=== PATIENT | male | born 1975 | race Caucasian/White ===

== ENCOUNTER 2022-05-15 11:58 | Inpatient (IN) | payer MEDICAID, OTHER ==
[~2022-05-15] VITALS: Ht 165.1 cm; Wt 51.3 kg
[2022-05-15 13:29] LABS: CLARITY URINE CLEAR (CLEAR); COLOR URINE DARK YELLOW (YELLOW); KETONES URINE TRACE (NEGATIVE); LEUKOCYTE ESTERASE URINE 1+ (NEGATIVE); NITRITE URINE POSITIVE (NEGATIVE); OCCULT BLOOD URINE TRACE (NEGATIVE); PH URINE 6.5 (4.5-8.0); PROTEIN URINE 2+ (NEGATIVE); SPECIFIC GRAVITY URINE 1.024 (1.005-1.030)
[2022-05-15 13:29] LABS: HEMOGLOBIN. 8.1 g/dL (14.0-18.0); MEAN CORPUSCULAR HEMOGLOBIN 30.2 pg (28.0-32.0); MEAN CORPUSCULAR VOLUME 92.9 fL (80.0-94.0); MEAN PLATELET VOLUME 9.3 fl (7.4-10.4); PLATELET 72 x1000/uL (130-400); RED BLOOD CELL COUNT 2.69 mill/uL (4.7-6.1); RED CELL DISTRIBUTION WIDTH 16.6 % (11.6-14.6)
[2022-05-15] MEDS ORDERED: SODIUM CHLORIDE 0.9% 1,000 ML IV ONE (13:30)
[2022-05-15] MEDS ORDERED: DIAZEPAM 5 MG/ML 2ML CPJ IV ONE (13:30)
[2022-05-15 13:39] LABS: CHLORIDE 103 mEq/L (98-107)
[2022-05-15 13:47] LABS: *AMPHETAMINES SCREEN URINE NEGATIVE (NEGATIVE); *BARBITURATES SCREEN URINE NEGATIVE (NEGATIVE); *BENZODIAZEPINES SCREEN URINE PRESUMTIVE POSITIVE (NEGATIVE); *COCAINE SCREEN URINE NEGATIVE (NEGATIVE); CANNABINOID URINE SCREEN NEGATIVE (NEGATIVE); METHADONE URINE SCREEN NEGATIVE (NEGATIVE); OPIATES URINE SCREEN NEGATIVE (NEGATIVE); PHENCYCLIDINE URINE SCREEN NEGATIVE (NEGATIVE)
[2022-05-15 13:48] LABS: ETHANOL BLOOD < 10 mg/dL
[2022-05-15] MEDS ORDERED: MIDAZOLAM HCL 2 MG/2 ML VIAL IV ONE ×3 (14:00→20:45)
[2022-05-15 14:35] LABS: PLATELET ESTIMATE DECREASED
[2022-05-16] MEDS: CHLORDIAZEPOXIDE 25MG CAPSULE PO PRN (06:41)
[2022-05-16 09:55] VITALS: BP 153/66
[2022-05-16 12:00] VITALS: BP 146/65
[2022-05-16] MEDS ORDERED: LORAZEPAM 0.5MG TABLET PO PRN (12:15)
[2022-05-16] MEDS ORDERED: ACETAMINOPHEN 325MG TABLET PO PRN (12:15)
[2022-05-16] MEDS ORDERED: IPRATROPIUM/ALBUTEROL 0.5-3(2.5)MG/3ML NEB HHN PRN (12:15)
[2022-05-16] MEDS ORDERED: CLONIDINE 0.1MG TABLET PO PRN (12:15)
[2022-05-16] MEDS ORDERED: ONDANSETRON HCL 4MG/2ML INJ IV PRN (12:15)
[2022-05-16 12:34] LABS: BG BASE EXCESS -2.2 mmol/L (-2.0-2.0); BG DEOXYHEMOGLOBIN 3.6 % (0.0-5.0); BG FRACTION INSPIRED OXYGEN 21; BG HCO3 ACT 20.9 mmol/L (22.0-26.0); BG METHEMOGLOBIN 0.3 % (0.0-1.5); BG OXYGEN SATURATION 96.4 % (92.0-98.5); BG OXYHEMOGLOBIN 96.1 % (94.0-97.0); BG PCO2 29.7 mmHg (35.0-45.0); BG PH 7.465 (7.350-7.450); BG PO2 88.8 mmHg (75.0-100.0); BG SAMPLE SITE RIGHT RADIAL; BG TOTAL HEMOGLOBIN 9.5 g/dL (12.0-18.0); BG VENT MODE ROOM AIR
[2022-05-16] MEDS ORDERED: LACTULOSE 300 ML in WATER FOR IRRIGATION,STERILE 700 ML IR SCH (14:00)
[2022-05-16] MEDS ORDERED: THIAMINE HCL 100 MG in SODIUM CHLORIDE 0.9% 49 ML IV SCH (14:00)
[2022-05-16] MEDS: SODIUM CHLORIDE 0.9% 1,000 ML IV SCH (14:25)
[2022-05-16] MEDS: FOLIC ACID 1MG TABLET PO SCH (14:26)
[2022-05-16] MEDS: LACTULOSE 20G/30ML UDC PO SCH ×2 (14:27→22:04)
[2022-05-16 16:00] VITALS: BP 138/86
[2022-05-16 17:09] LABS: INR 1.2; PROTHROMBIN TIME 13.1 sec (9.6-11.0)
[2022-05-16 17:21] LABS: PHOSPHORUS 3.9 mg/dL (2.5-4.9)
[2022-05-16 17:46] LABS: FOLIC ACID (FOLATE) SERUM 15.9 ng/mL (>5.38)
[2022-05-16 20:00] VITALS: BP 145/67
[2022-05-17] VITALS: BP 155/75
[2022-05-17] MEDS: ACETAMINOPHEN 325MG TABLET PO PRN ×2 (00:47→20:01)
[2022-05-17] MEDS: SODIUM CHLORIDE 0.9% 1,000 ML IV SCH ×2 (03:25→13:31)
[2022-05-17] MEDS: LACTULOSE 20G/30ML UDC PO SCH ×3 (06:35→20:01)
[2022-05-17] MEDS: THIAMINE HCL 100MG TABLET PO SCH (09:17)
[2022-05-17] MEDS: FOLIC ACID 1MG TABLET PO SCH (09:17)
[2022-05-17] MEDS: MULTIVITAMINS,THER W-MINERALS TABLET PO SCH (09:17)
[2022-05-17 11:35] VITALS: BP 127/78
[2022-05-17 12:07] LABS: HEMATOCRIT. 28.9 % (42.0-52.0); HEMOGLOBIN. 9.3 g/dL (14.0-18.0); MEAN CORPUSCULAR HEMOGLOBIN 30.4 pg (28.0-32.0); MEAN CORPUSCULAR VOLUME 94.5 fL (80.0-94.0); MEAN PLATELET VOLUME 8.4 fl (7.4-10.4); PLATELET 122 x1000/uL (130-400); RED BLOOD CELL COUNT 3.06 mill/uL (4.7-6.1)
[2022-05-17 12:12] LABS: CHLORIDE 111 mEq/L (98-107)
[2022-05-17 13:09] LABS: PLATELET ESTIMATE NORMAL
[2022-05-17] MEDS ORDERED: IOHEXOL-350 100 ML BOTTLE ONE (13:45)
[2022-05-17] MEDS ORDERED: POTASSIUM CHLORIDE 20MEQ TABLET SR PO NR (14:45)
[2022-05-17] MEDS ORDERED: IOHEXOL-300 100 ML BOTTLE ONE (15:58)
[2022-05-17 17:30] VITALS: BP 127/75
[2022-05-17 20:00] VITALS: BP 132/76
[2022-05-18] VITALS: BP 137/77
[2022-05-18] MEDS: SODIUM CHLORIDE 0.9% 1,000 ML IV SCH ×2 (00:37→14:19)
[2022-05-18 03:57] VITALS: BP 130/76
[2022-05-18] MEDS: LACTULOSE 20G/30ML UDC PO SCH ×3 (05:37→22:00)
[2022-05-18 06:41] LABS: EOSINOPHILS % 6.9 % (0.0-5.0); HEMOGLOBIN. 8.9 g/dL (14.0-18.0); LYMPHOCYTES % 7.5 % (20.0-50.0); MEAN CORPUSCULAR VOLUME 94.1 fL (80.0-94.0); MEAN PLATELET VOLUME 8.4 fl (7.4-10.4); MONOCYTES % 13.9 % (2.0-8.0); NEUTROPHILS % 69.7 % (40.0-76.0); PLATELET 128 x1000/uL (130-400); RED BLOOD CELL COUNT 2.87 mill/uL (4.7-6.1); RED CELL DISTRIBUTION WIDTH 17.4 % (11.6-14.6)
[2022-05-18 06:55] LABS: CHLORIDE 107 mEq/L (98-107)
[2022-05-18 08:00] VITALS: BP 134/86
[2022-05-18] MEDS: MULTIVITAMINS,THER W-MINERALS TABLET PO SCH (08:58)
[2022-05-18] MEDS: THIAMINE HCL 100MG TABLET PO SCH (08:58)
[2022-05-18] MEDS: FOLIC ACID 1MG TABLET PO SCH (09:03)
[2022-05-18 11:15] LABS: HEPATITIS B SURFACE ANTIGEN NEGATIVE
[2022-05-18 12:00] VITALS: BP 144/87
[2022-05-18 16:00] VITALS: BP 130/85
[2022-05-18 20:00] VITALS: BP 125/87
[2022-05-18] MEDS: CARVEDILOL 3.125 MG TABLET PO SCH (21:59)
[2022-05-19] VITALS: BP 131/76
[2022-05-19 04:00] VITALS: BP 133/76
[2022-05-19] MEDS: SODIUM CHLORIDE 0.9% 1,000 ML IV SCH ×2 (05:44→15:29)
[2022-05-19] MEDS: LACTULOSE 20G/30ML UDC PO SCH ×4 (06:00→21:49)
[2022-05-19 06:36] LABS: BASOPHILS % 1.9 % (0.0-2.0); EOSINOPHILS % 9.5 % (0.0-5.0); HEMATOCRIT. 26.1 % (42.0-52.0); HEMOGLOBIN. 8.6 g/dL (14.0-18.0); LYMPHOCYTES % 9.2 % (20.0-50.0); MEAN CORPUSCULAR HEMOGLOBIN 30.9 pg (28.0-32.0); MEAN PLATELET VOLUME 8.5 fl (7.4-10.4); MONOCYTES % 14.5 % (2.0-8.0); NEUTROPHILS % 64.9 % (40.0-76.0); PLATELET 136 x1000/uL (130-400); RED BLOOD CELL COUNT 2.78 mill/uL (4.7-6.1); RED CELL DISTRIBUTION WIDTH 17.4 % (11.6-14.6)
[2022-05-19 06:58] LABS: CHLORIDE 107 mEq/L (98-107)
[2022-05-19 08:00] VITALS: BP 133/73
[2022-05-19] MEDS: THIAMINE HCL 100MG TABLET PO SCH (08:44)
[2022-05-19] MEDS: CARVEDILOL 3.125 MG TABLET PO SCH ×2 (08:44→21:48)
[2022-05-19] MEDS: FOLIC ACID 1MG TABLET PO SCH (08:44)
[2022-05-19] MEDS: MULTIVITAMINS,THER W-MINERALS TABLET PO SCH (08:44)
[2022-05-19] MEDS: CHLORDIAZEPOXIDE 25MG CAPSULE PO PRN (08:49)
[2022-05-19] MEDS: RIFAXIMIN 550 MG TABLET PO SCH ×2 (09:51→21:49)
[2022-05-19 12:00] VITALS: BP 101/65
[2022-05-19 16:00] VITALS: BP 99/62
[2022-05-19 20:00] VITALS: BP 107/63
[2022-05-20] VITALS: BP 96/64
[2022-05-20 04:00] VITALS: BP 101/63
[2022-05-20] MEDS: SODIUM CHLORIDE 0.9% 1,000 ML IV SCH ×2 (04:06→15:24)
[2022-05-20] MEDS: LACTULOSE 20G/30ML UDC PO SCH ×3 (05:46→21:36)
[2022-05-20 06:59] LABS: HEMATOCRIT. 25.6 % (42.0-52.0); HEMOGLOBIN. 8.4 g/dL (14.0-18.0); MEAN CORPUSCULAR HEMOGLOBIN 30.5 pg (28.0-32.0); MEAN CORPUSCULAR VOLUME 92.9 fL (80.0-94.0); MEAN PLATELET VOLUME 8.3 fl (7.4-10.4); PLATELET 141 x1000/uL (130-400); RED BLOOD CELL COUNT 2.76 mill/uL (4.7-6.1); RED CELL DISTRIBUTION WIDTH 17.6 % (11.6-14.6)
[2022-05-20 07:25] LABS: CHLORIDE 109 mEq/L (98-107)
[2022-05-20 08:00] VITALS: BP 102/50
[2022-05-20] MEDS: CARVEDILOL 3.125 MG TABLET PO SCH ×2 (09:00→21:35)
[2022-05-20] MEDS: MULTIVITAMINS,THER W-MINERALS TABLET PO SCH (09:19)
[2022-05-20] MEDS: FOLIC ACID 1MG TABLET PO SCH (09:19)
[2022-05-20] MEDS: THIAMINE HCL 100MG TABLET PO SCH (09:19)
[2022-05-20] MEDS: RIFAXIMIN 550 MG TABLET PO SCH ×2 (09:20→21:35)
[2022-05-20 11:12] LABS: PLATELET ESTIMATE NORMAL
[2022-05-20 12:00] VITALS: BP 119/54
[2022-05-20] MEDS: CEFTRIAXONE 1,000 MG in DEXTROSE 5% WATER 50 ML IV SCH (15:24)
[2022-05-20 16:00] VITALS: BP 142/61
[2022-05-20 20:49] VITALS: BP 121/72
[2022-05-21 00:38] VITALS: BP 108/72
[2022-05-21 04:00] VITALS: BP 136/77
[2022-05-21] MEDS: LACTULOSE 20G/30ML UDC PO SCH ×3 (05:07→21:50)
[2022-05-21] MEDS: SODIUM CHLORIDE 0.9% 1,000 ML IV SCH (05:07)
[2022-05-21 07:12] LABS: HEMATOCRIT. 26.9 % (42.0-52.0); HEMOGLOBIN. 8.9 g/dL (14.0-18.0); MEAN CORPUSCULAR HEMOGLOBIN 30.9 pg (28.0-32.0); MEAN CORPUSCULAR VOLUME 93.4 fL (80.0-94.0); MEAN PLATELET VOLUME 8.7 fl (7.4-10.4); PLATELET 158 x1000/uL (130-400); RED BLOOD CELL COUNT 2.88 mill/uL (4.7-6.1); RED CELL DISTRIBUTION WIDTH 17.1 % (11.6-14.6)
[2022-05-21 07:19] LABS: CHLORIDE 105 mEq/L (98-107)
[2022-05-21 08:00] VITALS: BP 116/73
[2022-05-21] MEDS: CARVEDILOL 3.125 MG TABLET PO SCH ×2 (09:39→21:50)
[2022-05-21] MEDS: THIAMINE HCL 100MG TABLET PO SCH (09:39)
[2022-05-21] MEDS: RIFAXIMIN 550 MG TABLET PO SCH ×2 (09:39→21:50)
[2022-05-21] MEDS: FOLIC ACID 1MG TABLET PO SCH (09:39)
[2022-05-21] MEDS: MULTIVITAMINS,THER W-MINERALS TABLET PO SCH (09:39)
[2022-05-21 12:00] VITALS: BP 120/72
[2022-05-21 16:00] VITALS: BP 125/75
[2022-05-21] MEDS: CEFTRIAXONE 1,000 MG in DEXTROSE 5% WATER 50 ML IV SCH (16:18)
[2022-05-21 17:27] LABS: PLATELET ESTIMATE NORMAL
[2022-05-21 20:00] VITALS: BP 135/74
[2022-05-22] VITALS: BP 132/72
[2022-05-22 04:00] VITALS: BP 128/73
[2022-05-22] MEDS: LACTULOSE 20G/30ML UDC PO SCH ×3 (05:18→22:55)
[2022-05-22] MEDS: SODIUM CHLORIDE 0.9% 1,000 ML IV SCH (05:25)
[2022-05-22 05:50] LABS: BASOPHILS % 1.9 % (0.0-2.0); EOSINOPHILS % 10.4 % (0.0-5.0); HEMATOCRIT. 27.5 % (42.0-52.0); HEMOGLOBIN. 9.1 g/dL (14.0-18.0); LYMPHOCYTES % 10.2 % (20.0-50.0); MEAN CORPUSCULAR HEMOGLOBIN 30.4 pg (28.0-32.0); MEAN CORPUSCULAR VOLUME 91.7 fL (80.0-94.0); MEAN PLATELET VOLUME 8.4 fl (7.4-10.4); MONOCYTES % 14.8 % (2.0-8.0); NEUTROPHILS % 62.7 % (40.0-76.0); PLATELET 192 x1000/uL (130-400); RED CELL DISTRIBUTION WIDTH 17.5 % (11.6-14.6)
[2022-05-22 06:03] LABS: CHLORIDE 105 mEq/L (98-107)
[2022-05-22 08:00] VITALS: BP 120/71
[2022-05-22] MEDS: THIAMINE HCL 100MG TABLET PO SCH (09:05)
[2022-05-22] MEDS: RIFAXIMIN 550 MG TABLET PO SCH ×2 (09:05→22:52)
[2022-05-22] MEDS: MULTIVITAMINS,THER W-MINERALS TABLET PO SCH (09:05)
[2022-05-22] MEDS: CARVEDILOL 3.125 MG TABLET PO SCH ×2 (09:06→22:55)
[2022-05-22] MEDS: FOLIC ACID 1MG TABLET PO SCH (09:10)
[2022-05-22] MEDS: CHLORDIAZEPOXIDE 25MG CAPSULE PO SCH (11:50)
[2022-05-22 12:00] VITALS: BP 110/69
[2022-05-22] MEDS: CEFTRIAXONE 1,000 MG in DEXTROSE 5% WATER 50 ML IV SCH (15:49)
[2022-05-22 16:00] VITALS: BP 111/71
[2022-05-22 20:00] VITALS: BP 110/66
[2022-05-23] VITALS: BP 108/64
[2022-05-23 04:00] VITALS: BP 97/56
[2022-05-23 08:00] VITALS: BP 101/55
[2022-05-23 09:07] LABS: BASOPHILS % 1.4 % (0.0-2.0); CHLORIDE 102 mEq/L (98-107); EOSINOPHILS % 9.6 % (0.0-5.0); HEMATOCRIT. 26.9 % (42.0-52.0); LYMPHOCYTES % 9.2 % (20.0-50.0); MEAN CORPUSCULAR VOLUME 92.7 fL (80.0-94.0); MEAN PLATELET VOLUME 8.8 fl (7.4-10.4); MONOCYTES % 14.3 % (2.0-8.0); NEUTROPHILS % 65.5 % (40.0-76.0); PLATELET 213 x1000/uL (130-400); RED CELL DISTRIBUTION WIDTH 17.4 % (11.6-14.6)
[2022-05-23] MEDS: LACTULOSE 20G/30ML UDC PO SCH (09:29)
[2022-05-23] MEDS: RIFAXIMIN 550 MG TABLET PO SCH (09:35)
[2022-05-23] MEDS: THIAMINE HCL 100MG TABLET PO SCH (09:35)
[2022-05-23] MEDS: CHLORDIAZEPOXIDE 25MG CAPSULE PO SCH (09:35)
[2022-05-23] MEDS: MULTIVITAMINS,THER W-MINERALS TABLET PO SCH (09:35)
[2022-05-23] MEDS: FOLIC ACID 1MG TABLET PO SCH (09:36)
[2022-05-23] MEDS: CARVEDILOL 3.125 MG TABLET PO SCH (09:37)
[2022-05-23 12:00] VITALS: BP 111/54
[2022-05-23] MEDS ORDERED: LACT10SO7 MT (14:19)
[2022-05-23] MEDS ORDERED: THIA100T72 PO (14:19)
[2022-05-23] MEDS ORDERED: FOLI-43 PO (14:19)
[2022-05-23] MEDS ORDERED: L25 MT (14:19)
[2022-05-23] MEDS ORDERED: MULT-622 MT (14:19)
[2022-05-23 15:26] VITALS: BP 111/54
[2022-05-23 16:00] VITALS: BP 108/57
== END 2022-05-23 15:49 | disposition home or self-care (01) | DRG 279 ==
LOC: ER 12:12 → EDBEDREQTM 18:15 → EDBEDREQ 18:15 → ENRESERV 18:36 → CANRESERV 18:36 → MICUSO 05-16 03:52 → 7WST 05-16 09:53 → 6EST 05-22 14:50
PROVIDERS: ADMIT Internal Medicine; ATTEND Internal Medicine
DX: K72.90 Hepatic failure, unspecified without coma (principal); G92.8 Other toxic encephalopathy; D69.6 Thrombocytopenia, unspecified; K76.6 Portal hypertension; K92.2 Gastrointestinal hemorrhage, unspecified; D53.9 Nutritional anemia, unspecified; D72.825 Bandemia; S30.1XXA Contusion of abdominal wall, initial encounter; F10.239 Alcohol dependence with withdrawal, unspecified; K80.20 Calculus of gallbladder without cholecystitis without obstruction; K74.60 Unspecified cirrhosis of liver; R73.9 Hyperglycemia, unspecified; X58.XXXA Exposure to other specified factors, initial encounter; Y93.89 Activity, other specified; Z78.1 Physical restraint status; Y92.89 Other specified places as the place of occurrence of the external cause; Y99.8 Other external cause status
CPT/HCPCS: 36415; 36600; 74177; 76700; 80048; 80053; 80076; 80305; 80320; 81003; 82140; 82270; 82375; 82607; 82728; 82746; 82805; 83036; 83540; 83550; 83735; 83880; 84100; 84145; 84443; 85025; 86705; 86709; 86803; 87340; 93005; 97162; 99285; C1893; J0696; J2250; J2405; J3411; J7030; J7060; Q9967; A4315; G0480